=== PATIENT | male | born 1960 | race Caucasian/White ===

== ENCOUNTER 2018-11-27 09:05 | Day surgery (SDC) | payer MEDICAID ==
[~2018-11-27] VITALS: Ht 157.5 cm; Wt 166.9 kg
[2018-11-27] MEDS ORDERED: LACTATED RINGERS 1,000 ML IV SCH (10:15)
[2018-11-27 10:58] LABS: BASOPHILS % 0.9 % (0.0-2.0); EOSINOPHILS % 1.6 % (0.0-5.0); HEMATOCRIT. 38.6 % (42.0-52.0); HEMOGLOBIN. 13.1 g/dL (14.0-18.0); LYMPHOCYTES % 10.3 % (20.0-50.0); MEAN CORPUSCULAR HEMOGLOBIN 32.2 pg (28.0-32.0); MEAN CORPUSCULAR VOLUME 95.2 fL (80.0-94.0); MEAN PLATELET VOLUME 7.4 fl (7.4-10.4); MONOCYTES % 8.5 % (2.0-8.0); NEUTROPHILS % 78.7 % (40.0-76.0); PLATELET 191 x1000/uL (130-400); RED BLOOD CELL COUNT 4.06 mill/uL (4.7-6.1)
[2018-11-27 11:07] LABS: INR 1.3; PARTIAL THROMBOPLASTIN TIME 29.6 sec (23.4-31.0); PROTHROMBIN TIME 13.4 sec (9.6-11.0)
[2018-11-27] MEDS ORDERED: LIDOCAINE HCL 1% 20ML VIAL (Pyxis) INJ ONE (12:33)
[2018-11-27] MEDS ORDERED: METO-411 PO (12:39)
[2018-11-27] MEDS ORDERED: WARF-53 PO (12:39)
[2018-11-27] MEDS ORDERED: MULT-1234 PO (12:39)
[2018-11-27] MEDS ORDERED: LOSA-20 PO (12:39)
[2018-11-27] MEDS ORDERED: CINN500C5 PO (12:39)
[2018-11-27] MEDS ORDERED: FURO40TA5 PO (12:39)
[2018-11-27] MEDS ORDERED: DOCU-286 PO (12:39)
[2018-11-27] MEDS ORDERED: MIDAZOLAM HCL 5 MG/5 ML VIAL ONE (14:07)
[2018-11-27] MEDS ORDERED: SIMETHICONE 40 MG/0.6 ML 30ML ONE (14:11)
[2018-11-27] MEDS ORDERED: SODIUM CHLORIDE 0.9% 1,000 ML IV ONE (14:36)
[2018-11-27] MEDS ORDERED: ONDANSETRON HCL 4MG/2ML INJ IV PRN (14:45)
== END 2018-11-27 16:40 | disposition home or self-care (01) ==
LOC: OR 09:05
PROVIDERS: ATTEND Internal Medicine Gastroenterology
DX: Z45.2 Encounter for adjustment and management of vascular access device (principal); K64.8 Other hemorrhoids; K57.30 Diverticulosis of large intestine without perforation or abscess without bleeding; K62.5 Hemorrhage of anus and rectum; I48.91 Unspecified atrial fibrillation; I10 Essential (primary) hypertension; E66.01 Morbid (severe) obesity due to excess calories; Z79.01 Long term (current) use of anticoagulants
CPT/HCPCS: 36415; 36573; 45378; 71045; 80048; 85025; 85610; 85730; 93005; C1725; C1893; J2250; J3490; 36569; 76937